=== PATIENT | male | born 1985 | race Two or more races ===

== ENCOUNTER 2017-04-01 22:24 | Emergency (ER) | payer MEDICAID, OTHER ==
[~2017-04-01] VITALS: Ht 160 cm; Wt 81.6 kg
[2017-04-01 22:34] VITALS: BP 133/97
== END 2017-04-02 00:43 | disposition left against medical advice (07) ==
LOC: ER 22:24
DX: R05 Cough (principal); R06.02 Shortness of breath; Z53.21 Procedure and treatment not carried out due to patient leaving prior to being seen by health care provider
CPT/HCPCS: 71045